=== PATIENT | male | born 1950 | race American Indian/Alaskan Native ===

== ENCOUNTER 2017-05-17 20:16 | Emergency (ER) | payer OTHER ==
[2017-05-17] MEDS ORDERED: cefTRIAXone 1 GM Vial IVPUSH ONE (20:40)
[2017-05-17] MEDS ORDERED: LORazepam 0.5 MG Tab PO ONE (21:18)
--- NOTE | 2017-05-17 21:24 | EDM.PDOC ---
ED HPI GENERAL MEDICAL PROBLEM - General Chief Complaint: Respiratory Problem Stated Complaint: [id number] NOT BREATHING RIGHT Time Seen by Provider: 05/17/17 21:00 Source of Information: Reports: Patient, Family, RN, RN Notes Reviewed History Limitations: Reports: No Limitations - History of Present Illness INITIAL COMMENTS - FREE TEXT/NARRATIVE: Pt presents to the ER with c/o weakness in his legs and some SOB. 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 He states he recently over worked his legs exercising. He was told by someone that his legs had lost muscle mass and this bothered him. He states when he thinks about having to be in a wheelchair again he gets very agitated. Pt admits he feels that his SOB is related to anxiety. Onset: Gradual Right Hip Pain Score (Numeric/FACES): 8 - Related Data Allergies Allergy/AdvReac Type Severity Reaction Status Date / Time No Known Allergies Allergy Verified 05/17/17 20:22 Home Meds: Home Meds Acetaminophen [Tylenol Extra Strength] 1 - 2 tab PO .Q6H PRN 09/23/13 [History] Acetaminophen [Tylenol Extra Strength] 1 - 2 tab PO .Q6H PRN 09/23/13 [History] Acetaminophen/Diphenhydramine [Acetaminophen Pm Gelcap] 2 tab PO BEDTIME [History] Bicalutamide [Casodex] 1 tab PO DAILY 09/23/13 [History] Cholecalciferol (Vitamin D3) [Vitamin D] 1 tab PO DAILY 09/23/13 [History] Ibuprofen 1 tab PO .Q8H PRN 09/23/13 [History] Leuprolide [Lupron] 30 mg IJ .Q4MO 09/23/13 [History] Metoprolol Succinate [Toprol XL 50mg] 1 tab PO DAILY 09/23/13 [History] Multivitamin with Minerals [Multiple Vitamin] 1 tab PO DAILY 09/23/13 [History] Pomegranate Fruit Extract [Pomegranate] DAILY 09/23/13 [History] Venlafaxine [Effexor XR] 1 tab PO DAILY 09/23/13 [History] Past Medical History HEENT History: Reports: Otitis Media Cardiovascular History: Reports: Hypertension Gastrointestinal History: Reports: Cholelithiasis Genitourinary History: Reports: BPH, Prostate Disorder, Other (See Below) Other Genitourinary History: suprapubic catheter Musculoskeletal History: Reports: Back Pain, Chronic, Osteoarthritis, Other ( See Below) Other Musculoskeletal History: 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 Psychiatric History: Reports: Depression Oncologic (Cancer) History: Reports: Prostate - Infectious Disease History Infectious Disease History: Reports: Measles - Past Surgical History Male Surgical History: Reports: Suprapubic Catheter Placement Social & Family History - Family History Family Medical History: Noncontributory - Tobacco Use Smoking Status *Q: Never Smoker Second Hand Smoke Exposure: No - Caffeine Use Caffeine Use: Reports: Tea - Alcohol Use Days Per Week of Alcohol Use: 0 - Recreational Drug Use Recreational Drug Use: No - Living Situation & Occupation Living situation: Reports: with Family Occupation: Retired ED ROS GENERAL - Review of Systems Review Of Systems: ROS reveals no pertinent complaints other than HPI. ED EXAM, GENERAL - Physical Exam Exam: See Below Exam Limited By: Physical Impairment General Appearance: Alert, WD/WN, Mild Distress Eye Exam: Bilateral Eye: EOMI, Normal Inspection Ears: Normal External Exam, Hearing Grossly Normal Nose: Normal Inspection Throat/Mouth: Normal Inspection, Normal Voice, No Airway Compromise Head: Atraumatic, Normocephalic Neck: Normal Inspection, Supple, Non-Tender, Limited Range of Motion Respiratory/Chest: No Respiratory Distress, Lungs Clear, Normal Breath Sounds, No Accessory Muscle Use, Chest Non-Tender Cardiovascular: Normal Peripheral Pulses, Regular Rate, Rhythm, No Edema, No Gallop, No JVD, No Rub, Systolic Murmur Peripheral Pulses: 2+: Radial (L), Radial (R), Dorsalis Pedis (L), Dorsalis Pedis (R) GI/Abdominal: Normal Bowel Sounds, Soft, Non-Tender, No Organomegaly, No Distention, No Abnormal Bruit, No Mass, Other (suprapubic catheter noted) (Male) Exam: Deferred Rectal (Males) Exam: Deferred Back Exam: Normal Inspection, Decreased Range of Motion Extremities: Normal Inspection, No Pedal Edema, Normal Capillary Refill, Limited Range of Motion Neurological: Alert, Oriented, Normal Cognition Psychiatric: Anxious Skin Exam: Warm, Dry, Intact, Normal Color, No Rash Lymphatic: No Adenopathy Course - Vital Signs Last Recorded V/S: Last Vital Signs Temp 98.1 F 05/17/17 21:45 Pulse 59 L 05/17/17 21:45 Resp 18 05/17/17 21:45 BP 168/70 H 05/17/17 21:45 Pulse Ox 98 05/17/17 21:45 - Orders/Labs/Meds Meds: Medications Discontinued Medications Generic Name Dose Route Start Last Admin Trade Name See PRN Reason Stop Dose Admin Lorazepam 0.5 mg 05/17/17 21:18 05/17/17 21:29 Ativan PO 05/17/17 21:19 0.5 mg ONETIME ONE Administration Orphenadrine Citrate 60 mg 05/17/17 21:30 05/17/17 21:29 Norflex IM 60 mg Q12H PHILLIP Administration Departure - Departure Time of Disposition: 21:19 Disposition: Home, Self-Care 01 Condition: Fair Clinical Impression: Anxiety, Brown-Sequard syndrome, Muscle spasm - Discharge Information Instructions: Muscle Cramps and Spasms, [id number], Shortness of Breath, Adult, [id number], Panic Attacks, [id number] Referrals: Kelli Elizondo APPRAISAL MANAGER [Primary Care Provider] - Forms: ED Department Discharge Additional Instructions: RX: Ativan, Norflex Follow up with your primary care facility/care provider I highly recommend a referral to Neurology and Physical Therapy [facility]
[2017-05-17 22:00] VITALS: BP 168/70
== END 2017-05-17 21:46 | disposition home or self-care (01) ==
LOC: DL.ED 20:16
DX: F41.9 Anxiety disorder, unspecified (principal); G83.81 Brown-Sequard syndrome; M62.838 Other muscle spasm; I10 Essential (primary) hypertension; Z79.899 Other long term (current) drug therapy
CPT/HCPCS: 96372; 99284; A9270; J2360

== ENCOUNTER 2017-06-15 13:11 | Emergency (ER) | payer OTHER ==
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
[2017-06-15 13:36] VITALS: BP 124/55
[2017-06-15 14:13] LABS: CHLORIDE,CL 102 mmol/L (101-111); SODIUM,NA 135 mmol/L (135-145)
[2017-06-15] MEDS ORDERED: cefTRIAXone 1 GM, Lidocaine 1% 2.1 ML IM ONE ×2 (14:47)
== END 2017-06-15 15:21 | disposition home or self-care (01) ==
LOC: DL.ED 13:11
DX: T83.510A Infection and inflammatory reaction due to cystostomy catheter, initial encounter (principal); N39.0 Urinary tract infection, site not specified; I10 Essential (primary) hypertension; Z79.899 Other long term (current) drug therapy
CPT/HCPCS: 36415; 80053; 81001; 85025; 87086; 87088; 87186; 96372; 99283; J0696

== ENCOUNTER 2021-05-11 16:42 | Emergency (ER) | payer MEDICARE, OTHER ==
[2021-05-11] MEDS ORDERED: Sulfamethoxazole/Trimethoprim 800-160 MG Tab PO ONE (16:43)
[2021-05-11] MEDS ORDERED: Cephalexin 500 MG Cap PO ONE (16:43)
[2021-05-11 17:03] VITALS: BP 187/86; PULSE 53
[2021-05-11] MEDS ORDERED: Gentamicin Pediatric 10 MG/ML 2 ML SDV IM ONE (17:30)
[2021-05-11] MEDS ORDERED: Cephalexin 500 MG Cap ONE (17:39)
[2021-05-11] MEDS ORDERED: Sulfamethoxazole/Trimethoprim 800-160 MG Tab ONE (17:39)
[2021-05-11] MEDS ORDERED: Gentamicin 40 MG/ML 2 ML Vial ONE (17:51)
== END 2021-05-11 18:01 | disposition home or self-care (01) ==
LOC: DL.ED 16:42
DX: N30.01 Acute cystitis with hematuria (principal); E78.00 Pure hypercholesterolemia, unspecified; I10 Essential (primary) hypertension; Z79.899 Other long term (current) drug therapy
CPT/HCPCS: 81001; 96372; 99283; 99284; A9270-GY; J1580

== ENCOUNTER 2021-05-18 21:40 | Emergency (ER) | payer MEDICARE, OTHER ==
[2021-05-18 22:51] LABS: ANION GAP 12.9 mEq/L (7-13); CHLORIDE,CL 111 mmol/L (98-107); SODIUM,NA 142 mmol/L (136-145)
[2021-05-18] MEDS ORDERED: Sodium Chloride 0.9% 1,000 ML IV ONE (23:08)
[2021-05-19 00:05] VITALS: BP 120/68; PULSE 88
== END 2021-05-19 00:20 | disposition home or self-care (01) ==
LOC: DL.ED 21:40
DX: R31.9 Hematuria, unspecified (principal); E78.00 Pure hypercholesterolemia, unspecified; I10 Essential (primary) hypertension; N40.0 Benign prostatic hyperplasia without lower urinary tract symptoms; Z79.899 Other long term (current) drug therapy; Z20.822 Contact with and (suspected) exposure to COVID-19
CPT/HCPCS: 36415; 80053; 81001; 83605; 85025; 86140; 86850; 86900; 86901; 93005; 93010; 99283; 99284; J7030; U0002

== ENCOUNTER 2021-07-13 14:45 | Emergency (ER) | payer MEDICARE, OTHER ==
[2021-07-13 15:43] VITALS: BP 143/60; PULSE 60
[2021-07-13 15:48] LABS: CORONAVIRUS COVID-19 NAA POSITIVE (NEGATIVE)
== END 2021-07-13 16:10 | disposition home or self-care (01) ==
LOC: DL.ED 14:45
DX: U07.1 COVID-19 (principal); E78.00 Pure hypercholesterolemia, unspecified; I10 Essential (primary) hypertension; N40.0 Benign prostatic hyperplasia without lower urinary tract symptoms; Z79.899 Other long term (current) drug therapy
CPT/HCPCS: 0240U; 99283

== ENCOUNTER 2022-02-09 14:22 | Emergency (ER) | payer MEDICARE, OTHER ==
[2022-02-09 14:47] VITALS: BP 192/72; PULSE 66
[2022-02-09 17:01] LABS: CORONAVIRUS COVID-19 NAA NEGATIVE (NEGATIVE); RESPIRATORY SYNCYTIAL VIR NAA NEGATIVE (NEGATIVE)
== END 2022-02-09 17:23 | disposition home or self-care (01) ==
LOC: DL.ED 14:22
DX: B34.9 Viral infection, unspecified (principal); I10 Essential (primary) hypertension; Z79.899 Other long term (current) drug therapy; Z86.16 Personal history of COVID-19; Z90.49 Acquired absence of other specified parts of digestive tract; Z20.822 Contact with and (suspected) exposure to COVID-19
CPT/HCPCS: 0241U; 81001; 99284

== ENCOUNTER 2023-01-03 12:03 | Emergency (ER) | payer MEDICARE, OTHER ==
[2023-01-03 12:38] VITALS: BP 161/65; PULSE 50
[2023-01-03] MEDS ORDERED: Take Home: Acetaminophen/HYDROcodone 325-5 MG, 5 Tab Pack PO ONE (15:53)
== END 2023-01-03 16:07 | disposition home or self-care (01) ==
LOC: DL.ED 12:03
DX: M25.562 Pain in left knee (principal); R26.89 Other abnormalities of gait and mobility; I10 Essential (primary) hypertension; Z86.16 Personal history of COVID-19; Z79.899 Other long term (current) drug therapy
CPT/HCPCS: 73562-LT; 73610-LT; 73620-LT; 99283; 99284; A9270-GY

== ENCOUNTER 2023-04-02 10:58 | Emergency (ER) | payer MEDICARE, OTHER ==
[2023-04-02 12:50] LABS: HEMATOCRIT 35.2 % (40.0-54.0); HEMOGLOBIN 12.1 g/dL (14.0-18.0); MEAN CORPUSCULAR HEMOGLOBIN 32.9 pg (27.0-34.0); MEAN CORPUSCULAR HGB CONC 34.4 g/dL (33.0-35.0); MEAN CORPUSCULAR VOLUME 95.7 fL (80-100); PLATELET COUNT,PLT 199 10^3/uL (150-450); RED BLOOD CELL COUNT 3.68 10^6/uL (4.6-6.2); WHITE BLOOD CELL COUNT,WBC 10.2 10^3/uL (5.0-10.0)
[2023-04-02] MEDS: Sodium Chloride 0.9% 10 ML Syringe FLUSH PRN (12:51)
[2023-04-02 12:52] LABS: EOSINOPHILS PERCENT AUTO 0.5 % (1.0-3.0); LYMPHOCYTES PERCENT AUTO 5.5 % (20.5-50.1); MONOCYTES PERCENT AUTO 9.3 % (2-8); NEUTROPHILS PERCENT AUTO 84.7 % (42.2-75.2)
[2023-04-02] MEDS: HYDROmorphone 0.5 MG/0.5 ML Syringe IVPUSH ONE (12:52)
[2023-04-02] MEDS: Ketorolac 30 MG/ML SDV IVPUSH ONE (12:52)
[2023-04-02 13:11] LABS: ANION GAP 13.8 mEq/L (7-13); BILIRUBIN TOTAL 1.8 mg/dL (0.2-1.0); BUN/CREATININE RATIO 28.8 (No establ ref range); CALCIUM 8.7 mg/dL (8.5-10.1); CREATININE 0.8 mg/dL (0.70-1.30); EST CRCL DRUG DOSING (CG) 88.72 mL/min; POTASSIUM,K 3.8 mmol/L (3.5-5.1); PROTEIN TOTAL,TP 6.7 g/dL (6.4-8.2)
[2023-04-02 13:13] LABS: SEG NEUTROPHILS PERCENT MAN 85 % (42-75)
[2023-04-02 13:14] LABS: A/G RATIO 0.43; EOSINOPHILS PERCENT MAN 2 % (1-3); LYMPHOCYTES PERCENT MAN 5 % (20-50); MONOCYTES PERCENT MAN 6 % (2-8); MYELOCYTE PERCENT MAN 2
[2023-04-02] MEDS: Sodium Chloride 0.9% 1,000 ML IV ONE (13:45)
[2023-04-02 14:20] LABS: APPEARANCE,URINE CLOUDY (CLEAR); BILIRUBIN,URINE SMALL (NEGATIVE); COLOR,URINE DARK YELLOW (YELLOW); GLUCOSE,URINE NEGATIVE (NEGATIVE); KETONES,URINE 15 (NEGATIVE); LEUKOCYTE ESTERASE,URINE NEGATIVE (NEGATIVE); NITRITE,URINE NEGATIVE (NEGATIVE); OCCULT BLOOD,URINE LARGE (NEGATIVE); PROTEIN,URINE 100 (NEGATIVE); UROBILINOGEN,URINE >=8.0 mg/dL (0.2-1.0)
[2023-04-02 14:42] LABS: BACTERIA,URINE FEW /HPF (0-FEW/HPF); EPITHELIAL CELLS,URINE FEW /HPF (NOT SEEN); RBC,URINE SEMI-PACKED /HPF (0-5); WBC,URINE 20-30 /HPF (0-5/HPF)
[2023-04-02 14:44] LABS: YEAST,URINE MODERATE /HPF (NOT SEEN)
[2023-04-02 15:39] VITALS: BP 138/59; PULSE 66
== END 2023-04-02 15:31 | disposition home or self-care (01) ==
LOC: DL.ED 10:58
DX: K59.09 Other constipation (principal); E86.0 Dehydration; B37.41 Candidal cystitis and urethritis; I10 Essential (primary) hypertension; E78.00 Pure hypercholesterolemia, unspecified; Z79.899 Other long term (current) drug therapy; Z86.16 Personal history of COVID-19; Z90.49 Acquired absence of other specified parts of digestive tract
CPT/HCPCS: 36415; 71045; 72170; 73030; 73620; 80053; 81001; 83605; 85025; 96361; 96374; 96375; 99284; J1170; J1885; J7030; J3490

== ENCOUNTER 2023-07-16 15:27 | Inpatient (IN) | payer MEDICARE, OTHER ==
[2023-07-16 15:50] LABS: HEMATOCRIT 28.7 % (40.0-54.0); HEMOGLOBIN 10.1 g/dL (14.0-18.0); MEAN CORPUSCULAR HGB CONC 35.2 g/dL (33.0-35.0); MEAN CORPUSCULAR VOLUME 85.2 fL (80-100); PLATELET COUNT,PLT 277 10^3/uL (150-450); RED BLOOD CELL COUNT 3.37 10^6/uL (4.6-6.2)
[2023-07-16 15:54] LABS: BASOPHILS PERCENT AUTO 0.1 % (0.0-1.0); EOSINOPHILS PERCENT AUTO 0.1 % (1.0-3.0); LYMPHOCYTES PERCENT AUTO 12.8 % (20.5-50.1); MONOCYTES PERCENT AUTO 7.1 % (2-8); NEUTROPHILS PERCENT AUTO 79.9 % (42.2-75.2)
[2023-07-16] MEDS: Sodium Chloride 0.9% 10 ML Syringe FLUSH PRN (15:56)
[2023-07-16 16:16] LABS: LYMPHOCYTES PERCENT MAN 9 % (20-50); SEG NEUTROPHILS PERCENT MAN 86 % (42-75)
[2023-07-16 16:17] LABS: MONOCYTES PERCENT MAN 5 % (2-8)
[2023-07-16 16:20] LABS: A/G RATIO 0.49; ANION GAP 15.9 mEq/L (7-13); BILIRUBIN TOTAL 1.2 mg/dL (0.2-1.0); BUN/CREATININE RATIO 30.9 (No establ ref range); CALCIUM 8.4 mg/dL (8.5-10.1); CREATININE 1.75 mg/dL (0.70-1.30); EST CRCL DRUG DOSING (CG) 39.94 mL/min; MAGNESIUM 1.3 mg/dL (1.8-2.4); POTASSIUM,K 2.9 mmol/L (3.5-5.1); PROTEIN TOTAL,TP 6.1 g/dL (6.4-8.2)
[2023-07-16 16:31] LABS: LACTIC ACID 3.2 mmol/L (0.4-2.0)
[2023-07-16 17:15] LABS: APPEARANCE,URINE CLEAR (CLEAR); BILIRUBIN,URINE NEGATIVE (NEGATIVE); COLOR,URINE YELLOW (YELLOW); GLUCOSE,URINE NEGATIVE (NEGATIVE); KETONES,URINE NEGATIVE (NEGATIVE); LEUKOCYTE ESTERASE,URINE NEGATIVE (NEGATIVE); NITRITE,URINE NEGATIVE (NEGATIVE); OCCULT BLOOD,URINE TRACE-LYSED (NEGATIVE); PH,URINE 5.5 (5.0-9.0); PROTEIN,URINE 30 (NEGATIVE); UROBILINOGEN,URINE 0.2 mg/dL (0.2-1.0)
[2023-07-16] MEDS: Ondansetron 4 MG/2 ML SDV IV ONE (17:18)
[2023-07-16] MEDS: Famotidine 20 MG/2 ML SDV IVPUSH ONE (17:18)
[2023-07-16] MEDS: Magnesium Sulfate/Water 2 GM in Premix Bag 1 BAG IV ONE ×2 (17:19→19:45)
[2023-07-16 17:28] LABS: BACTERIA,URINE FEW /HPF (0-FEW/HPF); EPITHELIAL CELLS,URINE OCCASIONAL /HPF (NOT SEEN); MUCUS,URINE OCCASIONAL /LPF (NOT SEEN); RBC,URINE 0-5 /HPF (0-5); WBC,URINE 0-5 /HPF (0-5/HPF)
[2023-07-16 17:29] LABS: HYALINE CASTS,URINE RARE
[2023-07-16] MEDS: NS with KCl 40mEq 1,000 ML IV SCH (17:46)
[2023-07-16] MEDS ORDERED: Naloxone 2 MG/2 ML Syringe IVPUSH PRN (19:02)
[2023-07-16] MEDS ORDERED: HYDROmorphone 0.5 MG/0.5 ML Syringe IVPUSH PRN (19:02)
[2023-07-16] MEDS ORDERED: Albuterol/Ipratropium 3.0-0.5 MG/3 ML Neb Soln NEB PRN (19:02)
[2023-07-16] MEDS ORDERED: Melatonin 3 MG Tab PO PRN (19:02)
[2023-07-16] MEDS ORDERED: Acetaminophen 325 MG Tab PO PRN (19:02)
[2023-07-16] MEDS ORDERED: traMADol 50 MG Tab PO PRN (19:06)
[2023-07-16] MEDS: OLANZapine 10 MG Vial IM PRN (19:30)
[2023-07-16] MEDS: Linezolid 600 MG in Premix Bag 1 BAG IV SCH (19:44)
[2023-07-16] MEDS: Sodium Chloride 0.9% 1,000 ML IV ONE (19:45)
[2023-07-16] MEDS: Thiamine 100 MG in Sodium Chloride 0.9% 100 ML IV ONE (19:45)
[2023-07-16] MEDS: MVI, Adult with Vitamin K 10 ML, Folic Acid 1 MG, Thiamine 100 MG in Lactated Ringers 1... IV ONE (19:45)
[2023-07-16] MEDS: HYDROmorphone 0.5 MG/0.5 ML Syringe IVPUSH PRN (19:45)
[2023-07-16] MEDS: HYDROmorphone 1 MG/ML Syringe IVPUSH ONE (21:15)
[2023-07-16] MEDS ORDERED: OLANZapine 10 MG Vial IM PRN (22:34)
[2023-07-16] MEDS: Promethazine 25 MG/ML SDV IM PRN (23:45)
[2023-07-17 06:39] LABS: HEMATOCRIT 23.1 % (40.0-54.0); MEAN CORPUSCULAR HEMOGLOBIN 30.7 pg (27.0-34.0); MEAN CORPUSCULAR HGB CONC 34.6 g/dL (33.0-35.0); MEAN CORPUSCULAR VOLUME 88.5 fL (80-100); PLATELET COUNT,PLT 171 10^3/uL (150-450); RED BLOOD CELL COUNT 2.61 10^6/uL (4.6-6.2); WHITE BLOOD CELL COUNT,WBC 12.4 10^3/uL (5.0-10.0)
[2023-07-17 06:50] LABS: BASOPHILS PERCENT AUTO 0.1 % (0.0-1.0); EOSINOPHILS PERCENT AUTO 0.8 % (1.0-3.0); MONOCYTES PERCENT AUTO 7.3 % (2-8); NEUTROPHILS PERCENT AUTO 75.8 % (42.2-75.2)
[2023-07-17 07:21] LABS: ALBUMIN 1.5 g/dL (3.4-5.0); ALKALINE PHOSPHATASE 117 U/L (46-116); ANION GAP 16.4 mEq/L (7-13); ASPARTATE AMNIOTRANSFERASE,AST 15 U/L (15-37); BILIRUBIN TOTAL 0.9 mg/dL (0.2-1.0); BLOOD UREA NITROGEN,BUN 42 mg/dL (7-18); BUN/CREATININE RATIO 32.8 (No establ ref range); C-REACTIVE PROTEIN 5.08 ng/dL (<=0.50); CALCIUM 7.1 mg/dL (8.5-10.1); CARBON DIOXIDE,CO2 17 mmol/L (21-32); CHLORIDE,CL 114 mmol/L (98-107); CREATININE 1.28 mg/dL (0.70-1.30); EST CRCL DRUG DOSING (CG) 47.68 mL/min; GLUCOSE RANDOM 92 mg/dL (70-99); MAGNESIUM 2.1 mg/dL (1.8-2.4); POTASSIUM,K 4.4 mmol/L (3.5-5.1); PROTEIN TOTAL,TP 4.6 g/dL (6.4-8.2); SODIUM,NA 143 mmol/L (136-145)
[2023-07-17 07:22] LABS: LYMPHOCYTES PERCENT MAN 13 % (20-50); MONOCYTES PERCENT MAN 5 % (2-8); SEG NEUTROPHILS PERCENT MAN 82 % (42-75)
[2023-07-17 07:23] LABS: A/G RATIO 0.48; ALANINE AMINOTRANSFERASE,ALT < 6 U/L (16-63); ESTIMATED GFR 60 mL/min (>=60)
[2023-07-17] MEDS: Linezolid 600 MG in Premix Bag 1 BAG IV SCH (09:25)
[2023-07-17] MEDS: Enoxaparin 40 MG/0.4 ML Syringe SUBCUT SCH (09:25)
[2023-07-17] MEDS: ENZALUTAMIDE 40 MG PO SCH (11:09)
[2023-07-17] MEDS ORDERED: fentaNYL 12 MCG/HR Transdermal Patch TRDERM SCH (12:00)
[2023-07-17] MEDS: Dextrose 5%-0.9% NaCl 1,000 ML IV SCH (15:21)
[2023-07-17] MEDS: Menthol/Zinc Oxide Ointment 113 GM Tube TOP SCH (20:21)
[2023-07-18 06:32] LABS: BASOPHILS PERCENT AUTO 0.1 % (0.0-1.0); EOSINOPHILS PERCENT AUTO 1.5 % (1.0-3.0); HEMATOCRIT 24.6 % (40.0-54.0); HEMOGLOBIN 8.5 g/dL (14.0-18.0); MEAN CORPUSCULAR HGB CONC 34.6 g/dL (33.0-35.0); MEAN CORPUSCULAR VOLUME 89.8 fL (80-100); MONOCYTES PERCENT AUTO 6.5 % (2-8); NEUTROPHILS PERCENT AUTO 75.9 % (42.2-75.2); PLATELET COUNT,PLT 210 10^3/uL (150-450); RED BLOOD CELL COUNT 2.74 10^6/uL (4.6-6.2)
[2023-07-18 06:33] LABS: WHITE BLOOD CELL COUNT,WBC 10.3 10^3/uL (5.0-10.0)
[2023-07-18 07:02] LABS: ALBUMIN 1.7 g/dL (3.4-5.0); ANION GAP 15.7 mEq/L (7-13); BILIRUBIN TOTAL 1.1 mg/dL (0.2-1.0); BUN/CREATININE RATIO 24.6 (No establ ref range); C-REACTIVE PROTEIN 8.66 ng/dL (<=0.50); CALCIUM 7.9 mg/dL (8.5-10.1); CREATININE 1.3 mg/dL (0.70-1.30); EST CRCL DRUG DOSING (CG) 46.95 mL/min; MAGNESIUM 1.8 mg/dL (1.8-2.4); POTASSIUM,K 4.7 mmol/L (3.5-5.1); PROTEIN TOTAL,TP 5.3 g/dL (6.4-8.2)
[2023-07-18 07:04] LABS: A/G RATIO 0.47
[2023-07-18] MEDS: Lactated Ringers 1,000 ML IV SCH (11:28)
[2023-07-19 06:53] LABS: HEMATOCRIT 25.6 % (40.0-54.0); HEMOGLOBIN 8.7 g/dL (14.0-18.0); MEAN CORPUSCULAR HEMOGLOBIN 30.3 pg (27.0-34.0); MEAN CORPUSCULAR VOLUME 89.2 fL (80-100); PLATELET COUNT,PLT 209 10^3/uL (150-450); RED BLOOD CELL COUNT 2.87 10^6/uL (4.6-6.2); WHITE BLOOD CELL COUNT,WBC 11.6 10^3/uL (5.0-10.0)
[2023-07-19 06:58] LABS: BASOPHILS PERCENT AUTO 0.1 % (0.0-1.0); EOSINOPHILS PERCENT AUTO 1.7 % (1.0-3.0); LYMPHOCYTES PERCENT AUTO 20.6 % (20.5-50.1); MONOCYTES PERCENT AUTO 6.1 % (2-8); NEUTROPHILS PERCENT AUTO 71.5 % (42.2-75.2)
[2023-07-19 07:01] LABS: ALBUMIN 1.8 g/dL (3.4-5.0); ANION GAP 16.1 mEq/L (7-13); BILIRUBIN TOTAL 1.1 mg/dL (0.2-1.0); C-REACTIVE PROTEIN 9.68 ng/dL (<=0.50); CALCIUM 8.3 mg/dL (8.5-10.1); CREATININE 1.3 mg/dL (0.70-1.30); EST CRCL DRUG DOSING (CG) 46.95 mL/min; MAGNESIUM 1.8 mg/dL (1.8-2.4); PHOSPHORUS 3.1 mg/dL (2.6-4.7); POTASSIUM,K 4.1 mmol/L (3.5-5.1); PROTEIN TOTAL,TP 5.4 g/dL (6.4-8.2)
[2023-07-19 07:07] LABS: A/G RATIO 0.5
[2023-07-19 08:07] LABS: BAND PERCENT MAN 4 %; SEG NEUTROPHILS PERCENT MAN 72 % (42-75)
[2023-07-19 08:08] LABS: EOSINOPHILS PERCENT MAN 2 % (1-3); LYMPHOCYTES PERCENT MAN 19 % (20-50); MONOCYTES PERCENT MAN 3 % (2-8)
[2023-07-19] MEDS ORDERED: hydrALAZINE 20 MG/ML SDV IVPUSH PRN (10:17)
[2023-07-19] MEDS: Bumetanide 1 MG/4 ML MDV IVPUSH ONE (10:36)
[2023-07-19] MEDS: Doxycycline Monohydrate 100 MG Cap PO SCH (20:41)
[2023-07-20 06:55] LABS: HEMATOCRIT 23.2 % (40.0-54.0); HEMOGLOBIN 7.8 g/dL (14.0-18.0); MEAN CORPUSCULAR HEMOGLOBIN 30.1 pg (27.0-34.0); MEAN CORPUSCULAR HGB CONC 33.6 g/dL (33.0-35.0); MEAN CORPUSCULAR VOLUME 89.6 fL (80-100); PLATELET COUNT,PLT 177 10^3/uL (150-450); RED BLOOD CELL COUNT 2.59 10^6/uL (4.6-6.2); WHITE BLOOD CELL COUNT,WBC 9.7 10^3/uL (5.0-10.0)
[2023-07-20 07:20] LABS: BASOPHILS PERCENT AUTO 0.1 % (0.0-1.0); EOSINOPHILS PERCENT AUTO 1.7 % (1.0-3.0); LYMPHOCYTES PERCENT AUTO 17.4 % (20.5-50.1); NEUTROPHILS PERCENT AUTO 73.8 % (42.2-75.2)
[2023-07-20 07:33] LABS: ALBUMIN 1.6 g/dL (3.4-5.0); ANION GAP 18.8 mEq/L (7-13); BILIRUBIN TOTAL 0.9 mg/dL (0.2-1.0); BUN/CREATININE RATIO 20.2 (No establ ref range); C-REACTIVE PROTEIN 9.85 ng/dL (<=0.50); CALCIUM 8.1 mg/dL (8.5-10.1); CREATININE 1.29 mg/dL (0.70-1.30); EST CRCL DRUG DOSING (CG) 47.31 mL/min; MAGNESIUM 1.7 mg/dL (1.8-2.4); POTASSIUM,K 3.8 mmol/L (3.5-5.1); PROTEIN TOTAL,TP 5.1 g/dL (6.4-8.2)
[2023-07-20 07:51] VITALS: PULSE 69
[2023-07-20 07:55] LABS: A/G RATIO 0.46
[2023-07-20] MEDS: Metoprolol Tartrate 25 MG Tab PO SCH (08:04)
[2023-07-20] MEDS: Hydrochlorothiazide 25 MG Tab PO SCH (08:04)
[2023-07-20 08:18] LABS: BAND PERCENT MAN 1 %; EOSINOPHILS PERCENT MAN 1 % (1-3); LYMPHOCYTES PERCENT MAN 14 % (20-50); MONOCYTES PERCENT MAN 6 % (2-8); SEG NEUTROPHILS PERCENT MAN 78 % (42-75)
[2023-07-20 11:54] VITALS: BP 149/61
== END 2023-07-20 11:30 | disposition home or self-care (01) | DRG 682 ==
LOC: DL.ED 15:27 → DL.MS 18:06
PROVIDERS: ADMIT Internal Medicine; ATTEND Internal Medicine
DX: N17.9 Acute kidney failure, unspecified (principal); G93.41 Metabolic encephalopathy; E87.20 Acidosis, unspecified; M86.9 Osteomyelitis, unspecified; E44.0 Moderate protein-calorie malnutrition; C79.51 Secondary malignant neoplasm of bone; E87.1 Hypo-osmolality and hyponatremia; Z86.16 Personal history of COVID-19; Z79.899 Other long term (current) drug therapy; E87.6 Hypokalemia; E83.42 Hypomagnesemia; Z66 Do not resuscitate; R73.9 Hyperglycemia, unspecified; G89.29 Other chronic pain; M25.512 Pain in left shoulder; R62.7 Adult failure to thrive; R53.1 Weakness; F32.A Depression, unspecified; F41.9 Anxiety disorder, unspecified; C61 Malignant neoplasm of prostate; E83.39 Other disorders of phosphorus metabolism; E78.00 Pure hypercholesterolemia, unspecified; N40.0 Benign prostatic hyperplasia without lower urinary tract symptoms; K59.09 Other constipation; H40.9 Unspecified glaucoma; E86.0 Dehydration; I10 Essential (primary) hypertension; E87.8 Other disorders of electrolyte and fluid balance, not elsewhere classified; G47.33 Obstructive sleep apnea (adult) (pediatric); D63.0 Anemia in neoplastic disease; D69.6 Thrombocytopenia, unspecified; I73.9 Peripheral vascular disease, unspecified; Z90.6 Acquired absence of other parts of urinary tract; Z85.89 Personal history of malignant neoplasm of other organs and systems; Z93.2 Ileostomy status; Z68.21 Body mass index [BMI] 21.0-21.9, adult; Z93.6 Other artificial openings of urinary tract status; Z86.14 Personal history of Methicillin resistant Staphylococcus aureus infection; Z85.830 Personal history of malignant neoplasm of bone; Z90.49 Acquired absence of other specified parts of digestive tract
CPT/HCPCS: 36415; 80053; 81001; 82140; 82150; 83605; 83615; 83690; 83735; 84100; 84145; 85025; 87040 ×2; 96365; 96368; 96375; 99285 ×2; J2405; J3475; J3480; J3490; 86140; A9270-GY; J1170; J1650; J2020; J2550; J3411; J7030; J7042; J7120